=== PATIENT | male | born 1930 | race Caucasian/White ===

== ENCOUNTER 2018-01-05 12:46 | Emergency (ER) | payer MEDICARE, OTHER ==
[~2018-01-05] VITALS: Ht 188 cm; Wt 99.8 kg
[2018-01-05 12:50] VITALS: BP 129/75
== END 2018-01-05 13:31 | disposition left against medical advice (07) ==
LOC: ER 12:46
DX: R55 Syncope and collapse (principal); Z53.21 Procedure and treatment not carried out due to patient leaving prior to being seen by health care provider
CPT/HCPCS: 93005